=== PATIENT | female | born 1990 | race American Indian/Alaskan Native ===

== ENCOUNTER 2016-07-05 09:43 | Emergency (ER) | payer MEDICAID ==
[2016-07-05 10:34] VITALS: BP 111/67
== END 2016-07-05 13:00 | disposition left against medical advice (07) ==
LOC: ED 09:43
DX: R42 Dizziness and giddiness (principal); J00 Acute nasopharyngitis [common cold]; Z53.21 Procedure and treatment not carried out due to patient leaving prior to being seen by health care provider